=== PATIENT | female | born 1980 | race Caucasian/White ===

== ENCOUNTER 2018-07-16 10:09 | Emergency (ER) | payer MEDICAID, OTHER ==
[~2018-07-16] VITALS: Ht 165.1 cm; Wt 56.4 kg
--- NOTE | 2018-07-16 10:41 | NUR ---
PRINCIPAL ASSOCIATE: PT TO ED ROOM 26 FROM LOBBY IN NAD AT THIS TIME
--- NOTE | 2018-07-16 10:59 | NUR ---
PT W/ 3 DAYS OF RIGHT FLANK PAIN WITH N/V AND FEVER. PT AMB TO BATHROOM UPRIGHT SLOUCHING GAIT. URINE SAMPLE COLLECTED. PT ON MONITOR, VSS WITH HR 120'S. DR. NEWELL AT BEDSIDE. PT ASSESSMENT REVIEWED, ORDERS REC'D
[2018-07-16] MEDS ORDERED: MORPHINE SULFATE 4 MG/ML, 1ML ONE (11:15)
[2018-07-16] MEDS ORDERED: KETOROLAC 30 MG/1 ML ONE (11:15)
[2018-07-16] MEDS ORDERED: ONDANSETRON 2MG/ML, 2ML ONE (11:15)
--- NOTE | 2018-07-16 11:22 | NUR ---
PIV STARTED, IVF INFUSING W/O DIFFICULTY. PT MED NOTED. PT TO CT WITH TECH TRANSPORT
[2018-07-16] MEDS ORDERED: ONDANSETRON 2MG/ML, 2ML IVPush ONE (11:30)
[2018-07-16] MEDS ORDERED: KETOROLAC 30 MG/1 ML IVPush ONE (11:30)
[2018-07-16] MEDS ORDERED: SODIUM CHLORIDE FLUSH 10ML SYR IVF ONE (11:30)
[2018-07-16] MEDS ORDERED: SODIUM CHLORIDE 0.9% 1,000ML IV ONE (11:30)
[2018-07-16] MEDS ORDERED: MORPHINE SULFATE 4 MG/ML, 1ML IVPush PRN (11:30)
[2018-07-16 11:35] LABS: ALBUMIN 3.6 g/dL (3.4-5.0); ANION GAP 7 mmol/L (5-15); CALCIUM 9.2 mg/dL (8.5-10.1); CHLORIDE 99 mmol/L (98-107)
[2018-07-16 11:38] LABS: ALANINE AMINOTRANSFERASE 28 U/L (12-78); ALKALINE PHOSPHATASE 152 U/L (45-117); BASOPHILS # (AUTO) 0.01 x10^3/uL (0-0.1); BASOPHILS % (AUTO) 0 % (0-1); CREATININE 1.28 mg/dL (0.55-1.02); EOSINOPHILS % (AUTO) 0 % (1-7); LYMPHOCYTES # (AUTO) 0.37 x10^3/uL (1-3.4); LYMPHOCYTES % (AUTO) 3 % (22-44); MD NO; MEAN CORPUSCULAR HEMOGLOBIN 29.9 pg (27.0-34.8); MEAN CORPUSCULAR HGB CONC 34.8 g/dL (32.4-35.8); MEAN PLATELET VOLUME 7.4 fL (7.4-10.4); MONOCYTES % (AUTO) 6 % (2-9); NEUTROPHILS % (AUTO) 91 % (42-75); PLATELET COUNT 196 x10^3/uL (130-400); RED BLOOD COUNT 4.39 x10^6/uL (3.82-5.3); TOTAL PROTEIN 8.2 g/dL (6.4-8.2)
[2018-07-16 11:46] VITALS: BP 94/47
--- NOTE | 2018-07-16 11:47 | NUR ---
ASSUMED CARE OF PT AT THIS TIME. PT IS RESTING IN BED AT THIS TIME. REPORTS IMPROVED PAIN CONTROL AT THIS TIME. PT ASKED TO LET RN IF PAIN GETS WORSE. PT HAS LOW BP, BUT PER PT SHE RUNS VERY LOW EVIDENCE BY PREVIOUS TREND BP. AWAITING FURTHER ORDERS.
[2018-07-16 12:00] LABS: CULTURE INDICATED? YES; MICROSCOPIC INDICATED
[2018-07-16] MEDS ORDERED: CEFTRIAXONE PMX 1GM/50ML 50 ML IVPB ONE (12:30)
--- NOTE | 2018-07-16 12:34 | NUR ---
PT WALKED TO RESTROOM. DAUGHTER AT SIDE FOR FURTHER ASSISTANCE.
--- NOTE | 2018-07-16 13:16 | NUR ---
MD TO BEDSIDE.
[2018-07-16] MEDS ORDERED: CEFTRIAXONE PMX 1GM/50ML 50 ML ONE (13:18)
--- NOTE | 2018-07-16 13:56 | NUR ---
Patient/Caregiver given discharge instructions and they have confirmed that they understand the instructions. Patient ambulatory with steady gait.
== END 2018-07-16 14:02 | disposition home or self-care (01) ==
LOC: ED 11:17
DX: N10 Acute pyelonephritis (principal)
CPT/HCPCS: 36415; 74176; 80053; 81001; 85025; 87077; 87086; 87186; 96361; 96365; 96366; 96375; 99284; J0696; J1885; J2405; J7030

== ENCOUNTER 2019-06-20 12:41 | Outpatient (CLI) | payer OTHER | END 2019-06-20 23:59 | disposition home or self-care (01) | LOC: CFH 12:41 | PROVIDERS: ATTEND Obstetrics & Gynecology | DX: N60.01 Solitary cyst of right breast (principal); N64.89 Other specified disorders of breast | CPT/HCPCS: 76642; 77066; G0279 ==

== ENCOUNTER 2021-03-09 08:19 | Outpatient (CLI) | payer OTHER | END 2021-03-09 23:59 | disposition home or self-care (01) | LOC: CFH 08:19 | PROVIDERS: ATTEND Family Medicine | DX: Z12.31 Encounter for screening mammogram for malignant neoplasm of breast (principal); Z12.39 Encounter for other screening for malignant neoplasm of breast; N60.02 Solitary cyst of left breast; N60.01 Solitary cyst of right breast | CPT/HCPCS: 76641; 77063; 77067 ==